=== PATIENT | female | born 1970 | race Caucasian/White ===

== ENCOUNTER 2018-08-05 17:29 | Observation (INO) | payer BC ==
[2018-08-05] MEDS ORDERED: Meclizine HCl 25 MG TAB ONE ×2 (18:16→18:23)
[2018-08-05] MEDS ORDERED: Acetaminophen 325 MG TAB PO PRN (20:18)
[2018-08-05] MEDS ORDERED: Ondansetron PF 4 MG/2 ML Vial IVP PRN (20:18)
[2018-08-05] MEDS ORDERED: Senokot S 8.6-50 MG TAB PO PRN (20:18)
[2018-08-05] MEDS ORDERED: HYDROcodone/Acetaminophen 5/325 mg Tablet PO PRN ×2 (20:18)
[2018-08-05] MEDS ORDERED: Acetaminophen 650 MG Suppository PR PRN (20:18)
[2018-08-05] MEDS ORDERED: Meclizine HCl 25 MG TAB PO PRN (20:18)
[2018-08-05] MEDS ORDERED: Ondansetron ODT 4 MG TAB PO PRN (20:18)
[2018-08-05] MEDS ORDERED: SUMAtriptan Succinate 50 MG TAB PO PRN (20:18)
[2018-08-05] MEDS ORDERED: Ketorolac Tromethamine 30 MG/ML VIAL IVP PRN (20:18)
[2018-08-05] MEDS: Sodium Chloride 0.9% 1,000 ML IV SCH (21:21)
[2018-08-05] MEDS: Famotidine 20 MG TAB PO SCH (21:22)
--- NOTE | 2018-08-06 02:23 | HP ---
PRIMARY CARE PHYSICIAN: Nimo Salazar MD. CHIEF COMPLAINT: Vertigo and headache. HISTORY OF PRESENT ILLNESS: This is a 47-year-old white female who has a history of more mild spell of vertigo about 3-4 years ago. She also had an episode of an upper respiratory tract infection with some loss of hearing and ear problems last year and saw an ENT and that resolved. The patient reports that she started having some headaches along with sinus congestion and her hearing going in and out in both ears, but worse in the left over the past week. She has been taking Tylenol and ibuprofen for the headaches and that have not really been going away. She does have history of migraines, but had not had any regularly for quite some time. The patient did have some nausea. These symptoms had improved some and then this morning when patient woke up, she felt some dizziness and nausea. When she tried to sit up to get out of bed, she felt severe vertigo with the room spinning around her and she could not get out of bed. She eventually called her to come home from work to help her get up. When he tried to get her up out of bed, she was not able to get up even with his assistance, then she started feeling very nauseated and then vomited bilious vomiting several times at home. He tried to help her to the car , but she could not stand up because it made the vertigo worse. Eventually, she crawled to the car with his assistance and they went to the [facility]. There she had multiple episodes of vomiting in the waiting room and then in her ER room. She was given multiple doses of Zofran, followed by metoclopramide, Benadryl, and Toradol to help with dizziness, nausea, vomiting, and headache. She had a CT scan done of the brain and it was negative. Her symptoms did improve with resolution of this severe vertigo and no more vomiting, just feeling nauseated; however, she still felt quite dizzy and was not able to ambulate well and so they transferred her here for further workup. Here the patient was given a dose of aspirin and an Antivert and she is being put in observation to rule out posterior stroke. PAST MEDICAL HISTORY: Left knee arthritis. No history of hypertension, diabetes, or heart disease. She has had a negative workup for heart problems with Dr. Jones in the last year. She also takes metformin because she has a strong family history of diabetes, but does not have diabetes herself. PAST SURGICAL HISTORY: 1. Cholecystectomy. 2. Supracervical hysterectomy. 3. Breast implants. 4. Multiple left knee arthroscopies. SOCIAL HISTORY: The patient had smoked few cigarettes when she was younger, but never smoked regularly and she has not smoked for many years. No alcohol use. No illicit drug use. She is and lives with her . FAMILY HISTORY: Mother had some sort of heart disease and in her 60s of unknown causes. Father along with paternal grandmother and paternal grandfather all had diabetes. ALLERGIES: NO KNOWN DRUG ALLERGIES. CURRENT MEDICATIONS: 1. Lexapro 10 mg daily. 2. Metformin 1000 mg twice a day. REVIEW OF SYSTEMS: CONSTITUTIONAL: No fevers, no chills. EYES: No double vision. No blurred vision. ENT: See HPI. She has had some sinus pressure, but no runny nose and no sore throat currently. CARDIOVASCULAR: The patient has had some fluttering palpitations sort of feeling in her heart along with the vertigo; however, she had an EKG done while she was having symptoms, just showed normal sinus rhythm. PULMONARY: No coughing, wheezing, or shortness of breath. GASTROINTESTINAL: See HPI. Her stomach is sore after all the vomiting, was not painful before that. No diarrhea or constipation. GENITOURINARY: No dysuria or hematuria. MUSCULOSKELETAL: No new muscle aches or joint pains. SKIN: No rashes or other lesions she has noted. NEUROLOGIC: See HPI. No numbness, tingling, or focal weakness. PHYSICAL EXAMINATION: VITAL SIGNS: Blood pressure 116/60, pulse 62, respirations 18, temperature 97.4 , and O2 saturation 97% on room air. GENERAL: This is a well-developed, overweight white female in no acute distress , lying flat in the bed. HEENT: Pupils equal, round, and reactive to light. Oropharynx clear without lesions, erythema, or exudate. NECK: Supple. No lymphadenopathy. No thyroid nodules or enlargement. No JVD. HEART: Regular rate and rhythm. No murmurs, rubs, or gallops. LUNGS: Clear to auscultation bilaterally. No wheezes, crackles, or rhonchi. ABDOMEN: Soft. Mild tenderness to palpation diffusely. No guarding. No rebound tenderness. No hepatosplenomegaly or other masses. Normoactive bowel sounds. EXTREMITIES: No clubbing, cyanosis, or edema. SKIN: No rashes or other lesions noted. NEUROLOGIC: The patient has normal cranial nerve exam, 2 through 12 intact and equal bilaterally. She has intact normal extraocular movements. She has minimal horizontal nystagmus with lateral gaze in both sides. Deep tendon reflexes 2+ in all extremities. Strength 5/5 in all extremities. Cerebellar testing was normal [id number], normal alternating movements, normal [id number] bilaterally. Her HINTS exam was negative. I did do a [place]-Hallpike maneuver on the patient and this revealed no worsening of symptoms or nystagmus on either side. LABORATORY DATA: No lab done in our ER. No significant abnormalities from the [facility]. Chest x-ray was reportedly negative and CT of the head was reportedly negative. EKG did show normal sinus rhythm without evidence of ischemia from the outside emergency room and no arrhythmias. ASSESSMENT AND PLAN: 1. Severe vertigo with nausea and vomiting. Given the patient's headache and hearing issues and some sinus pressure, this is most likely a viral labyrinthitis. However, given the severity of the symptoms of a sudden onset, we do need to consider the possibility of an acute stroke in the posterior circulation. We will get an MRI to make certain that she is not having any ischemic disease causing her symptoms and she has already been started on aspirin a day. This can be discontinued if her MRI is negative. We will continue meclizine for now along with Zofran as needed for nausea and vomiting. We will also give the patient fluids to replenish her from all the vomiting earlier. She is feeling a little hungry now, so we will try her on a regular diet. 2. Migraine headaches with persistent headache. The patient's headache is now down from a 10 to about a 2-3/10 after migraine protocol in the outside emergency room. We will continue Toradol as needed here and if she has significant return of symptoms, we can also try a dose of Imitrex. 3. Gastrointestinal prophylaxis. We will put the patient on Pepcid twice a day. 4. Deep venous thrombosis prophylaxis. We will put the patient on Lovenox while she is in the hospital and we will put SCDs on while she is in bed. We will encourage her to try and ambulate. 5. Code status. I did discuss this with the patient. She is a full code. Should she be incapacitated, she states that her medical decision maker would be her , KYLIE Mccoy. Job ID: [id number] MTDD
[2018-08-06 06:43] LABS: #Lymphocytes 1.4 thou/uL (1.20-3.40); #Monocytes 0.7 thou/uL (0.11-0.59); #Neutrophils 12.8 thou/uL (1.40-6.50); %Basophils 0.1 % (0.0-1.0); %Eosinophils 0.1 % (0.0-10.0); %Lymphocytes 9.4 % (21.0-51.0); %Monocytes 4.9 % (0.0-10.0); %Neutrophils 85.6 % (42.0-75.0); Hemoglobin 13.9 g/dL (12.0-16.0); Mean Corpuscular HGB CONC 33.4 g/dL (32.0-36.0); Mean Corpuscular Hemoglobin 29.2 pg (27.0-31.0); Mean Corpuscular Volume 87.5 fL (78.0-98.0); Mean Platelet Volume 8.1 fL (7.4-10.4); Platelet Count 338 thou/uL (130-400); RBC Distribution Width 12.1 % (11.5-14.5); Red Blood Cell (RBC) Count 4.74 mill/uL (4.20-5.40)
[2018-08-06 07:00] LABS: Anion Gap 13 mmol/L (10-20); BUN (Urea Nitrogen) 16 mg/dL (7.0-18.7); Calc. Creatinine Clearance 115 mL/min (70-130); Calcium 9.5 mg/dL (7.8-10.44); Carbon Dioxide 26 mmol/L (22-29); Chloride 105 mmol/L (98-107); Estimated GFR-MDRD 82; Glucose 112 mg/dL (70-105); Potassium 4.1 mmol/L (3.5-5.1); Sodium 140 mmol/L (136-145)
--- NOTE | 2018-08-06 08:22 | PDOC.PN ---
- Subjective Encounter Start Date: 08/06/18 Encounter Start Time: 11:20 Subjective: Patient reports no more vertigo, just a little dizzy. No more vomiting. -: Minimal nausea. Persistent migraine REYES, now mostly behind right eye, -: same as previous migraines. Down to 3/10 intensity from 1010 yest. - Objective Resuscitation Status - Order Detail: 08/05/18 19:33 Resuscitation Status Routine Resuscitation Status: FULL: Full Resuscitation Discussed with: Patient MAR Reviewed: Yes Vital Signs & Weight: Vital Signs (12 hours) Temp Pulse Resp BP BP Pulse Ox 08/06/18 08:00 99.1 F 57 L 18 114/62 99 08/06/18 04:00 98.3 F 66 14 111/59 L 95 08/06/18 00:18 97.9 F 64 16 86/47 L 97 Weight Weight 175 lb Result Diagrams: 08/06/18 05:37 08/06/18 05:37 Phys Exam - Physical Examination Constitutional: NAD HEENT: moist MMs Respiratory: no wheezing, no rales, no rhonchi Cardiovascular: RRR, no significant murmur Gastrointestinal: soft, positive bowel sounds Neurological: non-focal, moves all 4 limbs Psychiatric: normal affect, A&O x 3 Dx/Plan (1) Vertigo Code(s): R42 - DIZZINESS AND GIDDINESS Status: Acute Comment: MRI negative for stroke (2) Migraine Code(s): G43.909 - MIGRAINE, UNSP, NOT INTRACTABLE, WITHOUT STATUS MIGRAINOSUS Status: Acute Comment: Improved. Trying a dose of Imitrex. (3) Nausea and vomiting Code(s): R11.2 - NAUSEA WITH VOMITING, UNSPECIFIED Status: Resolved - Plan cont current plan of care Patient appears to either have a complex migraine vs. viral uri with -: labyrinthitis and migraine. Stable for d/c home. F/u with her -: ENT doctor as an outpatient. * . - Discharge Day Encounter end time: 11:35
[2018-08-06] MEDS ORDERED: Enoxaparin Sodium 40 MG/0.4 ML SYRINGE SC SCH (09:00)
[2018-08-06] MEDS: Famotidine 20 MG TAB PO SCH (11:06)
--- NOTE | 2018-08-06 11:28 | MRI ---
MRI BRAIN WITHOUT CONTRAST: HISTORY: Vertigo. Evaluate for posterior circulation stroke. COMPARISON: None. FINDINGS: No hemorrhage on the axial gradient echo sequence. No parenchymal mass, mass effect, or midline shift. Brain volume is age appropriate. Cortical mahoney white matter differentiation is preserved. The ventricles and sulci are patent and symmetric. Central arterial flow voids are maintained. Absent restricted diffusion. No significant T2 or FLAIR white matter hyperintensities. Adequate aeration of the sinuses and mastoid air cells. Based on the images provided, there is appropriate T2 signal in both inner ear structures and interna l auditory canals. IMPRESSION: 1. Absent restricted diffusion. No acute infarct. 2. No abnormal signal intensity in the posterior fossa structures. POS: [facility]
[2018-08-06 11:50] VITALS: BP 105/57; TEMP 97.7
[2018-08-06] MEDS ORDERED: traMADol HCl 50 MG TAB PO SCH (13:30)
[2018-08-06] MEDS: Sodium Chloride 0.9% 1,000 ML IV SCH (15:53)
--- NOTE | 2018-08-07 05:00 | DIS ---
DATE OF ADMISSION: 08/05/2018 DATE OF DISCHARGE: 08/06/2018 PRIMARY CARE PHYSICIAN: Nimo Salazar MD. REASON FOR ADMISSION: Severe vertigo and persistent migraine. DIAGNOSES AT DISCHARGE: 1. Peripheral vertigo, resolved. 2. Migraine. 3. Nausea and vomiting, resolved. PROCEDURE: MRI of the brain showing no evidence of acute infarction or other abnormality. SUMMARY OF HOSPITAL COURSE: This is a 47-year-old white female who had history of vertigo spells years ago and an upper respiratory tract infection causing hearing problems, seen by an ENT one year ago. She developed recurrent migraine headache along with sinus congestion and hearing going in and out over the past week and then on the day of admission, she woke up with severe vertigo. She was unable to get out of her bed, eventually went to the hospital in [place]. She had multiple episodes of vomiting both at home and in the emergency room. There, she had a negative CT scan. She had a migraine protocol done with decrease in the pain of the migraine from 10/10 to 3/10 and improvement in the vomiting, still with significant dizziness. She was transferred into our hospital for further workup to rule out posterior stroke. In our hospital, the patient had persistent dizziness, but her vertigo had resolved. Her nausea and vomiting resolved as well. Her headache persisted, but never more than 3/10 and she was able to the eat food well. She had an MRI which showed no evidence of stroke. The patient was doing well on the day of discharge and is being discharged to follow up with her ENT doctor. DISCHARGE MANAGEMENT: Discharged home. ACTIVITY: As tolerated. DIET: Regular diet. MEDICATIONS: 1. Ibuprofen 800 mg every 8 hours as needed for pain, 30 tablets dispensed. 2. Meclizine 25 mg every 8 hours as needed for dizziness or vertigo, 20 tablets dispensed. 3. Zofran 4 mg every 6 hours as needed for nausea and vomiting, 15 tablets dispensed. 4. Tramadol 50 mg every 6 hours as needed for pain, 20 tablets dispensed. 5. Metformin 500 mg twice a day. 6. Lexapro 10 mg daily. FOLLOWUP: The patient is to follow up with her primary care doctor in the next few days and with her ENT doctor in the next 1-2 weeks. Job ID: [id number]
== END 2018-08-06 15:57 | disposition home or self-care (01) ==
LOC: ERS 17:29 → 2SE 18:04
PROVIDERS: ADMIT Emergency Medicine; ATTEND Emergency Medicine
DX: R42 Dizziness and giddiness (principal); G43.909 Migraine, unspecified, not intractable, without status migrainosus; M17.12 Unilateral primary osteoarthritis, left knee; Z90.49 Acquired absence of other specified parts of digestive tract; Z90.710 Acquired absence of both cervix and uterus; Z98.82 Breast implant status; Z87.891 Personal history of nicotine dependence; Z79.84 Long term (current) use of oral hypoglycemic drugs; Z79.899 Other long term (current) drug therapy; Z98.890 Other specified postprocedural states
CPT/HCPCS: 36415; 70551; 80048; 85025; 96361; 96372; 96374; 96375; 99284; G0378; J1650; J1885; J2405

== ENCOUNTER 2021-05-11 11:36 | Outpatient (CLI) | payer BC | END 2021-05-11 11:37 | disposition home or self-care (01) | LOC: BICRAD 11:36 | PROVIDERS: ATTEND Nurse Practitioner Family | DX: M51.16 Intervertebral disc disorders with radiculopathy, lumbar region (principal) | CPT/HCPCS: 72110 ==